=== PATIENT | male | born 1960 | race Hispanic/Latino ===

== ENCOUNTER → 2016-06-12 | Outpatient (REF) | payer OTHER ==
[2016-06-12 11:01] LABS: MEAN CORPUSCULAR HEMOGLOBIN 30.7 pg (27.0-33.0); MEAN CORPUSCULAR HGB CONC 33.2 g/dl (32.0-36.5); MEAN CORPUSCULAR VOLUME 92.5 fl (80.0-96.0); RED CELL DISTRIBUTION WIDTH 12.7 % (11.5-14.5); WHITE BLOOD COUNT 10.8 K/mm3 (4.0-10.0)
[2016-06-12 11:31] LABS: ALBUMIN 3.7 GM/DL (3.2-5.2); ALBUMIN/GLOBULIN RATIO 0.95 (1.00-1.93); ALKALINE PHOSPHATASE 106 U/L (45-117); ALT/SGPT 29 U/L (12-78); ANION GAP 7 MEQ/L (8-16); AST/SGOT 13 U/L (15-37); BILIRUBIN,TOTAL 0.6 MG/DL (0.2-1.0); BLOOD UREA NITROGEN 11 MG/DL (7-18); CALCIUM LEVEL 9.1 MG/DL (8.5-10.1); CARBON DIOXIDE LEVEL 31 MEQ/L (21-32); CHLORIDE LEVEL 106 MEQ/L (98-107); CREATININE FOR GFR 0.87 MG/DL (0.70-1.30); GLOMERULAR FILTRATION RATE > 60.0 (>56); GLUCOSE, FASTING 163 MG/DL (70-105); POTASSIUM SERUM 3.7 MEQ/L (3.5-5.1); SODIUM LEVEL 144 MEQ/L (136-145); TOTAL PROTEIN 7.6 GM/DL (6.4-8.2)
== END ==
LOC: M LAB REF 10:43
PROVIDERS: ATTEND Surgery
DX: R10.9 Unspecified abdominal pain (principal)

== ENCOUNTER → 2016-06-12 | Outpatient (CLI) | payer OTHER ==
[~2016-06-12] MED LIST: GASTROGRAFIN SOLUTION 30ML (Q9963) As Ordered ONE; ISOVUE-370 76% 100ML VIAL (Q9967) As Ordered ONE
--- NOTE | 2016-06-12 18:05 | REP ---
CT ABDOMEN: HISTORY: Bilateral lower quadrant pain. COMPARISON: None. CONTRAST: 100 mL Isovue-370 FINDINGS: The lung bases are clear. There are a few subcentimeter sized focal areas of low density scattered throughout the hepatic parenchyma, too small for precise CT characterization, but showing no evidence of contrast enhancement and likely representing tiny hepatic cysts. There are no enhancing hepatic lesions. The gallbladder, spleen, pancreas, adrenal glands and kidneys are within normal limits. The abdominal aorta and paraaortic regions are within normal limits. The bowel loops and their mesenteries are within normal limits. The appendix is well visualized and is normal. There is no free fluid or free air in the abdomen. CT pelvis: The bowel loops and their mesenteries are within normal limits. There is no mass or adenopathy. There is no free fluid or free air. Bone window technique throughout the exam shows the osseous structures to be within normal limits for the patient's age. IMPRESSION: CT findings as described above, are within normal limits. Signed by Jerald Lo DO 06/12/2016 07:11 P
== END ==
LOC: M RAD 14:54
PROVIDERS: ATTEND Surgery
DX: R10.84 Generalized abdominal pain (principal)
CPT/HCPCS: 74160; Q9963; Q9967

== ENCOUNTER 2018-11-01 12:15 | Emergency (ER) | payer OTHER ==
[~2018-11-01] VITALS: Ht 185.4 cm; Wt 77.3 kg
[2018-11-01 12:53] LABS: BASO # 0.1 10^3/uL (0.0-0.2); BASO % 0.6 % (0.0-1.0); EOS # 0.3 10^3/uL (0.0-0.5); EOS % 2.2 % (0.0-3.0); HEMATOCRIT 45.6 % (42.0-52.0); HEMOGLOBIN 15.3 g/dl (13.5-17.5); LYMPH # 1.4 10^3/uL (1.5-5.0); LYMPH % 12.3 % (24.0-44.0); MEAN CORPUSCULAR HEMOGLOBIN 30.5 pg (27.0-33.0); MEAN CORPUSCULAR HGB CONC 33.6 g/dl (32.0-36.5); MEAN CORPUSCULAR VOLUME 90.8 fl (80.0-96.0); MONO # 0.8 10^3/uL (0.0-0.8); MONO % 6.6 % (0.0-5.0); NEUTROPHILS # 9.1 10^3/uL (1.5-8.5); NEUTROPHILS % 77.9 % (36.0-66.0); PLATELET COUNT, AUTOMATED 180 10^3/uL (150-450); RED BLOOD COUNT 5.02 10^6/uL (4.30-6.10); WHITE BLOOD COUNT 11.7 10^3/uL (4.0-10.0)
[2018-11-01] MEDS ORDERED: AMLO10TA5 PO (12:53)
[2018-11-01] MEDS ORDERED: PROV108A INH (12:56)
[2018-11-01 13:13] LABS: ALBUMIN 3.6 GM/DL (3.2-5.2); ALT/SGPT 21 U/L (12-78); BILIRUBIN,DIRECT 0.2 MG/DL (0.0-0.2); BILIRUBIN,TOTAL 0.6 MG/DL (0.2-1.0); BLOOD UREA NITROGEN 17 MG/DL (7-18); CALCIUM LEVEL 9.3 MG/DL (8.5-10.1); CARBON DIOXIDE LEVEL 29 MEQ/L (21-32); CHLORIDE LEVEL 110 MEQ/L (98-107); CREATININE FOR GFR 0.94 MG/DL (0.70-1.30); GLOMERULAR FILTRATION RATE > 60.0 (>56); GLUCOSE, FASTING 140 MG/DL (70-100); LIPASE 59 U/L (73-393); POTASSIUM SERUM 3.9 MEQ/L (3.5-5.1); SODIUM LEVEL 144 MEQ/L (136-145); TOTAL PROTEIN 7.9 GM/DL (6.4-8.2)
[2018-11-01] MEDS ORDERED: ISOVUE-370 76% 100ML VIAL (Q9967) As Ordered ONE (14:54)
--- NOTE | 2018-11-01 15:28 | REP ---
Clinical: Right lower quadrant pain. Technique: Axial contrast enhanced images from the lung bases to the pubic symphysis using 100 ml Isovue 370 intravenous contrast material with coronal and sagittal re-formations. Comparison: 06/12/2016. Findings: Right-sided hydronephrosis and hydroureter with mild periureteral stranding appears to be secondary to a 1 mm calculus at the right ureterovesical junction (image 128) and likely related to patient's symptoms. Correlation with physical examination and urinalysis is recommended. Scattered hepatic hypodensities are similar to prior examination and likely represent small cysts. Spleen, pancreas, gallbladder, bilateral adrenal glands and left kidney appear normal. The enteric system is without obstruction or acute inflammatory process. Normal terminal ileum and appendix are identified in the right lower quadrant. Pelvis demonstrates relatively normal bladder (see above) and prostate/seminal vesicles. No ascites. No free air. No adenopathy. Abdominal aorta without aneurysm or dissection. Musculoskeletal structures demonstrate age-related degenerative changes without focal abnormality. Lung bases demonstrate minimal posterior basilar dependent changes/atelectasis. Impression: 1. Findings most suggestive of acute right-sided obstructive uropathy with a 1 mm calculus at the ureterovesicle junction. 2. Hepatic hypodensities similar to prior examination likely representing cysts. Electronically Signed by Gerber Baumann MD 11/01/2018 03:20 P
[2018-11-01] MEDS ORDERED: CIPROFLOXACIN 400 MG in IV 1 EA IV ONE (16:00)
[2018-11-01] MEDS ORDERED: TAMSULOSIN 0.4 MG CAP PO ONE (16:00)
[2018-11-01] MEDS ORDERED: KETOROLAC 30 MG/ML VIAL (J1885) IV ONE (16:00)
[2018-11-01] MEDS ORDERED: ONDANSETRON 4MG/2ML VIAL (J2405) IV ONE (16:00)
[2018-11-01] MEDS ORDERED: FLOM0.4C39 PO (18:12)
[2018-11-01] MEDS ORDERED: CIPR500T3 PO (18:12)
[2018-11-01] MEDS ORDERED: ONDA4TAB6 PO (18:12)
[2018-11-01] MEDS ORDERED: IBUP-1022 PO (18:12)
[2018-11-01 18:30] VITALS: BP 155/86
== END 2018-11-01 18:39 | disposition home or self-care (01) ==
LOC: EDBD 12:15 → M ED 12:15
DX: N20.1 Calculus of ureter (principal); N13.30 Unspecified hydronephrosis; I10 Essential (primary) hypertension; J45.909 Unspecified asthma, uncomplicated; F17.200 Nicotine dependence, unspecified, uncomplicated; Z79.899 Other long term (current) drug therapy; Z88.7 Allergy status to serum and vaccine
CPT/HCPCS: 36415; 74177; 80048; 80076; 81001; 83690; 85025; 96365; 96375; 99284; J0744; J1885; J2405; Q9967